=== PATIENT | female | born 1995 | race Caucasian/White ===

== ENCOUNTER 2017-02-28 20:21 | Emergency (ER) | payer BC ==
[~2017-02-28] VITALS: Ht 154.9 cm; Wt 50.3 kg
--- NOTE | 2017-02-28 20:26 | NUR ---
PT BIBRA TO ER BED 10. PER REPORT, SYNCOPE WHILE WORKING OUT. 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 NO FALL, NO OBVIOUS TRAUMA. GOWNED AND PLACED ON MONITOR. VSS. BLOOD SUGAR WAS 120. AWAITINGMD EVAL.
--- NOTE | 2017-02-28 20:34 | NUR ---
DR OCONNOR AT BEDSIDE FOR EVAL.
--- NOTE | 2017-02-28 20:58 | NUR ---
PT DENIES . WILLING TO SIGN WAIVER. RADIOLOGY MADE AWARE.
--- NOTE | 2017-02-28 21:01 | NUR ---
RADIOLOGY AT BEDSIDE FOR CHEST XRAY.
[2017-02-28 21:02] LABS: MONOCYTES # (AUTO) 0.5 /CMM (0.1-1.30)
[2017-02-28 21:05] LABS: BASOPHILS # (AUTO) 0.1 /CMM (0.0-0.2); BASOPHILS % (AUTO) 0.5 % (0.0-2.0); EOSINOPHILS # (AUTO) 0.1 /CMM (0.0-0.7); HEMATOCRIT 38 % (33-45); LYMPHOCYTES # (AUTO) 1.8 /CMM (0.8-4.8); LYMPHOCYTES % (AUTO) 13.6 % (20.0-44.0); MEAN CORPUSCULAR HEMOGLOBIN 30 PG (26.0-33.0); MEAN CORPUSCULAR HGB CONC 34 g/dl (31.0-36.0); MEAN CORPUSCULAR VOLUME 89 fL (82-100); MONOCYTES % (AUTO) 4.1 % (2.0-12.0); NEUTROPHILS # (AUTO) 10.4 /CMM (1.8-8.9); NEUTROPHILS % (AUTO) 80.8 % (43.0-81.0); PLATELET COUNT (AUTO) 277 /CMM (150-450); RDW COEFFICIENT OF VARIATION 12.8 (11.5-15.0); RED BLOOD CELL COUNT(AUTO) 4.31 MIL/uL (4.0-5.2); WHITE BLOOD COUNT (AUTO) 12.9 K/uL (4.3-11.0)
[2017-02-28 21:12] LABS: CALCIUM, SERUM 8.5 mg/dL (8.5-10.1); CARBON DIOXIDE 26 mmol/L (21-32); CHLORIDE 107 mmol/L (98-107); GLUCOSE 102 mg/dL (74-106); POTASSIUM 3.7 mmol/L (3.5-5.1); SODIUM SERUM 141 mmol/L (136-145); UREA NITROGEN, BLOOD 24 mg/dL (7-18)
[2017-02-28 21:20] LABS: TROPONIN I < 0.017 ng/mL (0.00-0.056)
[2017-02-28 21:41] VITALS: BP 121/62
--- NOTE | 2017-02-28 21:41 | NUR ---
Patient discharged to home in stable condition. Written and verbal after care instructions given. Patient verbalizes understanding of instruction.IV removed. Catheter intact and site benign. Pressure and 4x4 applied to site. No bleeding noted.
== END 2017-02-28 21:42 | disposition home or self-care (01) ==
LOC: ER 20:23
DX: R55 Syncope and collapse (principal)
CPT/HCPCS: 36415; 71010; 80048; 84484; 85025; 93005; 99285; A4606; Z7610